=== PATIENT | male | born 1950 | race African-American/Black ===

== ENCOUNTER 2025-10-17 23:15 | Emergency (ER) | payer OTHER ==
[~2025-10-17] VITALS: Ht 175.3 cm; Wt 72.6 kg
[2025-10-18 00:55] LABS: APPEARANCE,URINE TURBID (CLEAR)
[2025-10-18 00:58] LABS: SQUAMOUS EPITHELIAL CELL,UR 0-2 /HPF (None Seen)
[2025-10-18] MEDS ORDERED: CEPH-570 PO (01:01)
[2025-10-18 01:24] LABS: PLATELET COUNT (AUTO) 157 K/uL (150-450); RED BLOOD CELL COUNT(AUTO) 4.59 MIL/uL (4.5-6.0); RED CELL DISTRIBUTION WIDTH 14.7 % (11.5-15.0); WHITE BLOOD COUNT (AUTO) 15.2 K/uL (4.3-11.0)
[2025-10-18 01:32] LABS: CALCIUM, SERUM 9.6 mg/dL (8.5-10.1); CREATININE 0.8 mg/dL (0.6-1.3); SODIUM SERUM 141.0 mmol/L (136-145); UREA NITROGEN, BLOOD 15.0 mg/dL (7-18)
[2025-10-18 01:38] LABS: ASPARTATE AMINOTRANSFERASE 19.0 U/L (15-37); TOTAL PROTEIN, SERUM 6.7 g/dL (6.4-8.2)
[2025-10-18] MEDS: CEPHALEXIN MONOHYDRATE 500 MG CAPSULE PO ONE (02:00)
[2025-10-18] MEDS ORDERED: CEPHALEXIN MONOHYDRATE 500 MG CAPSULE PO ONE (02:06)
[2025-10-18] MEDS ORDERED: CEFTRIAXONE 1GM BAG (ER ONLY) 50 ML IV ONE (02:17)
[2025-10-18] MEDS: CEFTRIAXONE 1 G in IV D5W 50 ML IV ONE (02:21)
[2025-10-18 03:29] VITALS: BP 137/81; O2SAT 100
== END 2025-10-18 04:49 | disposition short-term general hospital (02) ==
LOC: ER 23:19
DX: T83.9XXA Unspecified complication of genitourinary prosthetic device, implant and graft, initial encounter (principal); N39.0 Urinary tract infection, site not specified; Z79.899 Other long term (current) drug therapy; Y84.6 Urinary catheterization as the cause of abnormal reaction of the patient, or of later complication, without mention of misadventure at the time of the procedure
CPT/HCPCS: 99285; 51702; 81001; 96365; 84145; 85025; 83735; 36415; 80053; 86140; J0696 ×2; J7060; A4217 ×2